=== PATIENT | male | born 1970 ===

== ENCOUNTER 2016-10-21 19:54 | Emergency (ER) | payer OTHER ==
[2016-10-21 19:58] VITALS: BMI 28.1
[2016-10-21 20:19] LABS: ADD MANUAL DIFF? NO
[2016-10-21 20:24] LABS: BASO # 0.02 K/mm3 (0.0-2.0); BASO % 0.3 % (0.0-3.0); EOS # 0.1 (0.0-0.7); EOS % 1.5 % (1.5-5.0); GRAN # 3.65 (1.4-6.5); HEMATOCRIT 43.7 % (42.0-52.0); LYMPH # 2.2 (1.2-3.4); LYMPH % 33.6 % (22.0-35.0); MEAN CELL VOLUME 86.2 fL (80.0-105.0); MEAN CORPUSCULAR HEMOGLOBIN 30.6 pg (25.0-35.0); MEAN CORPUSCULAR HGB CONC 35.5 g/dl (31.0-37.0); MEAN PLATELET VOLUME 10.5 fl (7.0-11.0); MONO # 0.6 (0.1-0.6); MONO % 8.6 % (1.0-6.0); PLATELET COUNT 198 10^3/uL (120.0-450.0); RED CELL DISTRIBUTION WIDTH 12.6 % (11.5-14.5); WHITE BLOOD COUNT 6.5 10^3/ul (4.5-11.0)
[2016-10-21 20:32] LABS: ALB/GLOB RATIO 1.5 (1.1-1.8); ALKALINE PHOSPHATASE 62 U/L (38-133); ALT/SGPT 107 U/L (7-56); AST/SGOT 47 U/L (15-59); BILIRUBIN,TOTAL 0.6 mg/dL (0.2-1.3); BLOOD UREA NITROGEN 15 mg/dL (7-21); CALCIUM 9.2 mg/dL (8.4-10.5); CARBON DIOXIDE 28 mmol/L (21-33); CHLORIDE 100 mmol/L (98-107); GFR AFRICAN-AMERICAN > 60; GLUCOSE,RANDOM 91 mg/dL (70-110); POTASSIUM 3.8 mmol/L (3.6-5.0); SODIUM 137 mmol/L (132-148); TOTAL PROTEIN 7.5 g/dL (5.8-8.3)
[2016-10-21 20:44] LABS: PH,URINE 6.5 (4.7-8.0); URINE BILIRUBIN NEGATIVE (NEGATIVE); URINE BLOOD NEGATIVE (NEGATIVE); URINE GLUCOSE (UA) NEGATIVE (NEGATIVE); URINE KETONE NEGATIVE (NEGATIVE); URINE LEUKOCYTE ESTERASE NEGATIVE Leu/uL (NEGATIVE); URINE PROTEIN NEGATIVE mg/dL (<30 mg/dL); URINE UROBILINOGEN 0.2 E.U./dL (<1 E.U./dL)
[2016-10-21 20:45] LABS: TROPONIN I < 0.01 ng/mL
[2016-10-21 20:46] LABS: URINE APPEARANCE CLEAR (CLEAR); URINE COLOR YELLOW (YELLOW)
--- NOTE | 2016-10-21 21:29 | ED PDOC ---
Arrival/HPI - General Chief Complaint: Palpitations Time Seen by Provider: 10/21/16 19:54 Historian: Patient - History of Present Illness Narrative History of Present Illness (Text): 10/21/16 21:30 Tunde Jay is a 46 year old male, with a history of hypertension and hypercholesterolemia, presents to the emergency department complaining of palpitations since 12 pm today. States that he has not experienced symptoms of this quality before. Denies any fever, chills, headache, dizziness, chest pain, shortness of breath, nausea, vomiting, diarrhea, urinary symptoms, or any other complaints at this time. Time/Duration: Other (since 12 pm ) Symptom Onset: Gradual Severity Level: Mild Activities at Onset: Light Past Medical History - Travel History Have you recently traveled outside [place] w/in the past 3 mons?: Yes - Infectious Disease Hx of Infectious Diseases: None - Cardiac Hx Hypertension: Yes - Psychiatric Hx Psychophysiologic Disorder: No Hx Substance Use: No - Anesthesia Hx Anesthesia: No Family/Social History - Physician Review Nursing Documentation Reviewed: Yes Family/Social History: No Known Family HX Smoking Status: Never Smoked Hx Alcohol Use: No Hx Substance Use: No Allergies/Home Meds Allergies/Adverse Reactions: Allergies No Known Allergies Allergy (Verified 10/21/16 20:00) Home Medications: Home Meds Medication Instructions Recorded Confirmed Unobtainable 10/21/16 10/21/16 Review of Systems - Physician Review All systems were reviewed & negative as marked: Yes - Review of Systems Constitutional: Normal. absent: Fatigue, Fevers Respiratory: Normal. absent: SOB, Cough, Sputum Cardiovascular: Palpitations. absent: Chest Pain Gastrointestinal: Normal. absent: Abdominal Pain, Diarrhea, Nausea, Vomiting Genitourinary Male: Normal. absent: Dysuria, Frequency Neurological: Normal. absent: Headache, Dizziness Psychiatric: Normal Physical Exam Vital Signs Reviewed: Yes Vital Signs Pulse Resp BP Pulse Ox 10/21/16 23:15 69 16 127/89 100 10/21/16 22:05 75 20 123/88 99 10/21/16 21:05 81 16 124/83 99 10/21/16 20:05 85 16 141/93 H 98 Temperature: Afebrile Blood Pressure: Normal Pulse: Regular Respiratory Rate: Normal Appearance: Positive for: Well-Appearing, Non-Toxic, Comfortable Pain Distress: None Mental Status: Positive for: Alert and Oriented X 3 - Systems Exam Head: Present: Atraumatic, Normocephalic Pupils: Present: PERRL Conjunctiva: Present: Normal Mouth: Present: Moist Mucous Membranes Neck: Present: Normal Range of Motion Respiratory/Chest: Present: Clear to Auscultation, Good Air Exchange. No: Respiratory Distress, Accessory Muscle Use Cardiovascular: Present: Regular Rate and Rhythm, Normal S1, S2. No: Murmurs Abdomen: Present: Normal Bowel Sounds. No: Tenderness, Distention, Peritoneal Signs Upper Extremity: Present: Normal Inspection. No: Cyanosis, Edema Lower Extremity: Present: Normal Inspection. No: Edema Neurological: Present: GCS=15, CN II-XII Intact, Speech Normal, Motor Func Grossly Intact, Normal Sensory Function Skin: Present: Warm, Dry, Normal Color. No: Rashes Psychiatric: Present: Alert, Oriented x 3, Normal Insight, Normal Concentration Medical Decision Making ED Course and Treatment: 10/21/16 21:34 Impression: A 46 year old male who presents to the emergency department complaining of palpitations since 12 pm today. ekg rsr [id number] rare pvc Differential Diagnosis include but are not limited to: Plan: -- EKG -- Labs, cardiac enzymes -- Chest X-ray -- Urinalysis -- Reassess and disposition Progress Notes: pt fees better luisana dc to follow up with pmd and avoid stimulants 10/22/16 01:24 Re-evaluation Time: 23:02 Reassessment Condition: Re-examined, Improved - Lab Interpretations Lab Results: 10/21/16 20:05 10/21/16 20:05 Lab Results 10/21/16 20:25: Urine Opiates Screen Negative, Urine Methadone Screen Negative, Ur Barbiturates Screen Negative, Ur Phencyclidine Scrn Negative, Ur Amphetamines Screen Negative, U Benzodiazepines Scrn Negative, U Oth Cocaine Metabols Negative, U Cannabinoids Screen Negative 10/21/16 20:25: Urine Color Yellow, Urine Appearance Clear, Urine pH 6.5, Ur Specific [place] 1.010, Urine Protein Negative, Urine Glucose (UA) Negative, Urine Ketones Negative, Urine Blood Negative, Urine Nitrate Negative, Urine Bilirubin Negative, Urine Urobilinogen 0.2, Ur Leukocyte Esterase Negative 10/21/16 20:05: Thyroxine (T4) 7.3, TSH 3rd Generation 2.01 10/21/16 20:05: Sodium 137, Potassium 3.8, Chloride 100, Carbon Dioxide 28, Anion Gap 13, BUN 15, Creatinine 0.8, Est GFR ( Amer) > 60, Est GFR (Non- Af Amer) > 60, Random Glucose 91, Calcium 9.2, Total Bilirubin 0.6, AST 47, ALT 107 H, Alkaline Phosphatase 62, Lactate Dehydrogenase 475, Total Creatine Kinase 135, Troponin I < 0.01, Total Protein 7.5, Albumin 4.4, Globulin 3.0, Albumin/Globulin Ratio 1.5 10/21/16 20:05: WBC 6.5, RBC 5.07, Hgb 15.5, Hct 43.7, MCV 86.2, MCH 30.6, MCHC 35.5, RDW 12.6, Plt Count 198, MPV 10.5, Gran % 56.0, Lymph % (Auto) 33.6, [place] % (Auto) 8.6 H, Eos % (Auto) 1.5, Baso % (Auto) 0.3, Gran # 3.65, Lymph # 2.2, [place] # 0.6, Eos # 0.1, Baso # 0.02 - RAD Interpretation Radiology Orders: 10/21/16 20:10 CHEST PORTABLE [RAD] Stat MARY Risk Score for UA/NSTEMI - MARY Risk Score Age > 64: NO 3 or more CAD Risk Factors: NO Known CAD (Stenosis greater than 50%): NO Aspirin use in past 7 days: NO Severe Angina: NO EKG ST changes greater than 0.5mm: NO Positive Cardiac Marker: NO MARY Score: 0 % risk at 14 days of: all cause mortality, new or recurrent HI, or severe recurrent ischemia requiring urgen revascularization: 5% - Scribe Statement The provider has reviewed the documentation as recorded by the Minor Carrera Provider Attestation: Provider Scribe Attestation: All medical record entries made by the Scribe were at my direction and personally dictated by me. I have reviewed the chart and agree that the record accurately reflects my personal performance of the history, physical exam, medical decision making, and the department course for this patient. I have also personally directed, reviewed, and agree with the discharge instructions and disposition. Disposition/Present on Arrival - Present on Arrival Any Indicators Present on Arrival: No History of DVT/PE: No History of Uncontrolled Diabetes: No Urinary Catheter: No History of Decub. Ulcer: No History Surgical Site Infection Following: None - Disposition Have Diagnosis and Disposition been Completed?: Yes Diagnosis: Palpitation Disposition: HOME/ ROUTINE Disposition Time: 23:02 Condition: GOOD Discharge Instructions (ExitCare): Palpitations (ED) Print Language: POLISH Additional Instructions: follow up with pmd in am avoid stimulants Referrals: Evans Wallace [Primary Care Provider] - Follow up with primary
[2016-10-21 22:00] LABS: T4 7.3 ug/dL (5.5-11.0)
[2016-10-21 22:13] LABS: THYROID STIMULATING HORMONE 2.01 mIU/mL (0.46-4.68)
[2016-10-21 23:16] VITALS: BP 127/89; PULSE 69; RESP 16; O2SAT 100
--- NOTE | 2016-10-22 07:32 | RAD ---
HISTORY: palpitations COMPARISON: No prior. FINDINGS: LUNGS: Lung volumes are shallow. Pulmonary vasculature normal. No consolidation appreciated PLEURA: Left costophrenic angle minimal pleural thickening and/or minimal pleural effusion. No pneumothorax apparent. CARDIOVASCULAR: Normal. OSSEOUS STRUCTURES: No significant abnormalities. VISUALIZED UPPER ABDOMEN: Normal. OTHER FINDINGS: None. IMPRESSION: Probable small left inferolateral pleural effusion and/or thickening -chronicity unknown. Otherwise unremarkable
--- NOTE | 2016-10-22 14:31 | CARD ---
APPROVED REPORT EKG Measurement Heart [id number] <Conclusion> Sinus rhythm with one premature ventricular complex NSSTW changes
== END 2016-10-21 23:16 | disposition home or self-care (01) ==
LOC: ED 19:54
DX: R00.2 Palpitations (principal); I10 Essential (primary) hypertension; E78.00 Pure hypercholesterolemia, unspecified